=== PATIENT | female | born 1970 | race Caucasian/White ===

== ENCOUNTER 2018-01-28 19:04 | Emergency (ER) | payer MEDICAID ==
[2018-01-28] MEDS: KETOROLAC 30 MG INJ IM (21:24)
[2018-01-28] MEDS: LORAZEPAM 0.5 MG TAB PO (21:24)
== END 2018-01-28 22:05 | disposition home or self-care (01) ==
LOC: FTE 19:04
DX: H65.191 Other acute nonsuppurative otitis media, right ear (principal); K04.7 Periapical abscess without sinus; Z79.82 Long term (current) use of aspirin; Z87.891 Personal history of nicotine dependence
CPT/HCPCS: 81025; 93005; 96372; 99284-25